=== PATIENT | female | born 1970 | race Caucasian/White ===

== ENCOUNTER 2021-02-13 18:30 | Emergency (ER) | payer MEDICAID ==
[~2021-02-13] VITALS: Ht 144.8 cm; Wt 86.0 kg
[2021-02-13] MEDS ORDERED: ONDANSETRON 4MG ODT PO NR (20:30)
[2021-02-13 21:37] LABS: CHLORIDE 103 mEq/L (98-107)
[2021-02-13 21:38] LABS: HEMATOCRIT. 44.2 % (36.0-48.0); HEMOGLOBIN. 14.4 g/dL (12.0-16.0); MEAN CORPUSCULAR HEMOGLOBIN 28.9 pg (28.0-32.0); MEAN CORPUSCULAR VOLUME 88.5 fL (81.0-99.0); MEAN PLATELET VOLUME 9.5 fl (7.4-10.4); PLATELET 271 x1000/uL (130-400); RED CELL DISTRIBUTION WIDTH 13.6 % (11.6-14.6)
[2021-02-13 21:42] LABS: HCG SCREEN NEGATIVE
[2021-02-13 22:33] LABS: PLATELET ESTIMATE NORMAL
[2021-02-14] MEDS ORDERED: INSU100I33 SQ (00:53)
[2021-02-14] MEDS ORDERED: GLIP10TA10 MT (00:53)
[2021-02-14 00:59] VITALS: BP 140/84
[2021-02-14] MEDS ORDERED: ACETAMINOPHEN 325MG TABLET PO ONE (01:00)
== END 2021-02-14 01:49 | disposition home or self-care (01) ==
LOC: ER 18:30 → CANBEDREQ 02-14 04:15
DX: E10.65 Type 1 diabetes mellitus with hyperglycemia (principal); H81.10 Benign paroxysmal vertigo, unspecified ear; D72.829 Elevated white blood cell count, unspecified; E66.01 Morbid (severe) obesity due to excess calories; Z68.41 Body mass index [BMI] 40.0-44.9, adult; Z79.4 Long term (current) use of insulin
CPT/HCPCS: 36415; 80048; 84703; 85025; 93005; 99284